=== PATIENT | female | born 1965 | race African-American/Black ===

== ENCOUNTER → 2017-07-14 14:46 | Outpatient (CLI) | payer OTHER, SELFPAY ==
--- NOTE | 2017-07-14 14:54 | RAD_ITS ---
STUDY: X-RAY - LUMBAR SPINE REASON FOR EXAM: Female, 52 years old. Low back pain. No known injury. TECHNIQUE: 4 view(s) of the lumbar spine were obtained. COMPARISON: None FINDINGS: Normal lumbar lordosis. There is no substantial scoliosis. There is a normal alignment of the vertebrae. Normal vertebral bodies and endplates. Normal disc space heights. Is mild diffuse facet sclerosis. The soft tissue structures are unremarkable. RAD/L/S Spine Min 4 Views IMPRESSION: Mild diffuse facet sclerosis. Electronically Signed: Cornel Barrera MD at 17:59 EST , Service support ,
== END ==
PROVIDERS: Family Provider Family Medicine; PCP Family Medicine; Visit Provider Family Medicine
DX: G95.89 Other specified diseases of spinal cord (principal)
CPT/HCPCS: 72110

== ENCOUNTER → 2018-12-31 09:42 | Outpatient (CLI) | payer OTHER, SELFPAY ==
[2018-12-31 09:47] LABS: Bacteria 0 SEEN /hpf (None Seen); Mucous, Urine 0 SEEN /hpf (<or=2+)
[2018-12-31 12:27] LABS: Color, Urine Yellow (Yellow); Glucose, Dipstick Normal (Normal); Ketone-Dipstick Negative (Negative); Leukocyte Esterase-Dipstick Negative /ul (Negative); Nitrite-Dipstick Negative (Negative); Occult Blood-Urine 10 /ul (Negative); Protein-Dipstick Negative (Negative); Urine Bilirubin Dipstick Negative (Negative); Urine Clarity Clear (Clear); Urine Urobilinogen Normal (Normal)
[2018-12-31 12:37] LABS: Red Blood Cells-Urine 0-5 SEEN /hpf (0-5); White Blood Cells 0-5 SEEN /hpf (0-5)
[2018-12-31 12:38] LABS: Squamous Epithelial Cells - UA 5-10 SEEN /hpf (5-10)
[2018-12-31 13:00] LABS: ALB/GLOB Ratio 0.7 RATIO (0.9-2.4); AST(SGOT) 15 U/L (15-37); Alanine Aminotransfer ALT/SGPT 31 U/L (13-56); Albumin, Serum 3.4 g/dL (3.2-5.0); Alkaline Phosphatase 63 U/L (45-117); Anion Gap 6 (5-15); BUN 13 mg/dL (7-18); BUN/Creat Ratio 21.6 RATIO (10-20); Calcium,Total 8.9 mg/dL (8.5-10.1); Chloride 105 mmol/L (98-107); EST Glomerular Filtration Rate 110 mL/min (>60); Est Glom Filt Rate - Afr Amer 133 mL/min (>60); Glucose 79 mg/dL (74-106); Protein, Total 8.4 g/dL (6.4-8.2); Sodium Level 141 mmol/L (136-145); Thyroid Stim Hormone (TSH) 2.94 uIU/mL (0.358-3.74)
[2019-01-05 16:08] LABS: Albumin 3.5 g/dL (2.9-4.4); Alpha-1-Globulins 0.2 g/dL (0.0-0.4); Alpha-2-Globulins 0.7 g/dL (0.4-1.0); Gamma Globulin 1.9 g/dL (0.4-1.8); Immunoglobulin A 610 mg/dL (87-352); Immunoglobulin G 1529 mg/dL (700-1600); Immunoglobulin M 307 mg/dL (26-217); PROEL- TOTAL PROTEIN 7.8 g/dL (6.0-8.5); PROELU- Albumin, Urine 34.2 % (.); PROELU- Alpha-1-Globulin,Ur 3.4 % (.); PROELU- Alpha-2-Globulin,Ur 15.7 % (.); PROELU- Beta Globulin, Ur 27.4 % (.); PROELU- Gamma Globulin, Ur 19.3 % (.)
== END ==
PROVIDERS: Family Provider Family Medicine; PCP Family Medicine; Visit Provider Family Medicine
DX: G62.9 Polyneuropathy, unspecified (principal); R77.1 Abnormality of globulin; R10.9 Unspecified abdominal pain
CPT/HCPCS: 36415; 80053; 81001; 82784; 84165; 84166; 84443; 86334

== ENCOUNTER → 2019-01-06 14:04 | Outpatient (CLI) | payer OTHER, SELFPAY ==
--- NOTE | 2019-01-06 14:07 | BI_ITS ---
MAMMOGRAPHY - BILATERAL DIAGNOSTIC REASON FOR EXAM: Female, 53 years old. Left breast lump for one week. PERTINENT HISTORY: Non-contributory. TECHNIQUE: Digital bilateral breast dalia (3D mammographic acquisition) in the CC and MLO projections. 2-D mediolateral oblique (MLO) and craniocaudad (CC) views of both breasts were obtained. CAD: Full Field Digital Mammography with Computer Added Detection was performed. COMPARISON: Comparison is made with prior examination dated October 29, 2016 and October 01, 2016. FINDINGS: Breast Composition: The breasts are heterogeneously dense, which may obscure small masses. There are no dominant masses or suspicious calcifications. Stable calcified nodule in the upper lateral aspect of the right breast. A tissue clip marker is seen within the 1 cm nodule in the upper lateral aspect of the left breast. No other significant abnormalities are identified. There has been no significant change since the prior study. BI/DIAG MAMM W/CAD, BILAT IMPRESSION: Stable bilateral diagnostic mammogram. With the patient's history of a palpable abnormality in the left breast, correlation with ultrasound is recommended. ASSESSMENT CATEGORY: BIRADS Category 0: Incomplete. Need additional imaging evaluation. A letter regarding these results will be sent to the patient by the facility within 30 days. Approximately 10% of breast cancers are not detected by mammography. A normal mammogram should not delay biopsy of a clinically suspicious abnormality. Electronically Signed: Maulik Stephens, at 9:30 EDT , Service support ,
--- NOTE | 2019-01-06 14:08 | US_ITS ---
STUDY: ULTRASOUND BREAST - LEFT REASON FOR EXAM: Female, 53 years old. Palpable lump left breast. TECHNIQUE: Axial and longitudinal images of the LEFT breast were performed with a high resolution ultrasound transducer. COMPARISON: Comparison is made with prior mammogram dated January 06, 2019. Comparison is also made with prior ultrasound of the left breast dated October 10, 2016. FINDINGS: LEFT Breast: The upper medial aspect of the left breast was examined by ultrasound. There is a 2.9 cm x 2.9 cm x 0.9 cm hypoechoic well-defined nodular density with cystic component in its upper aspect at the 11:00 position of breast at 8 cm from nipple. This may represent a fibroadenoma. A biopsy is recommended. US/Breast Limited Unilateral IMPRESSION: The palpable abnormality corresponds to a 2.9 cm x 2.9 cm x 0.9 cm well-defined hypoechoic solid/cystic nodule in the 11:00 position breast at 8 cm from nipple. Biopsy recommended. ASSESSMENT CATEGORY: BIRADS Category 4: Suspicious - Biopsy Should Be Considered. A letter regarding these results will be sent to the patient by the facility within 30 days. Electronically Signed: Maulik Stephens, at 9:03 EDT , Service support ,
== END ==
PROVIDERS: Family Provider Family Medicine; PCP Family Medicine; Referring Provider Family Medicine; Visit Provider Family Medicine
DX: N63.20 Unspecified lump in the left breast, unspecified quadrant (principal)
CPT/HCPCS: 76642; 77062; 77066; G0279

== ENCOUNTER → 2019-01-08 09:36 | Outpatient (CLI) | payer OTHER, SELFPAY ==
--- NOTE | 2019-01-08 09:38 | US_ITS ---
STUDY: ABDOMINAL ULTRASOUND REASON FOR EXAM: Female, 53 years old. Flank pain TECHNIQUE: Transabdominal ultrasound was performed with real-time and static griffiths scale imaging. TECHNICAL QUALITY: Adequate. COMPARISON: None. FINDINGS: Liver: The liver measures 16.2 cm. There is mildly increased echogenicity of the liver. The bile ducts are within normal limits. There is hepatic color flow. The direction of portal flow is hepatopetal. There is no demonstrated mass lesion. Portal vein measurement: Gallbladder: Normal distended gallbladder. The gallbladder wall measures 2 mm. There is a negative sonographic Ly's sign. There is no pericholecystic fluid. There are no gallstones. Common Bile Duct (C.B.D.): The common bile duct measures 3 mm. Pancreas: Normal size of the head, body and tail of the pancreas. There is normal echogenicity of the pancreas. There is no demonstrated pancreatic mass or cyst. Spleen: Normal size of the spleen. The spleen measures 8.5 x 4.4 cm. Right Kidney: Normal size of the right kidney. The right kidney measures 10.5 x 5.4 x 3.4 cm. Normal renal cortex. The right cortex measures 1.2 cm. There is no demonstrated renal mass or cyst. There is no right hydronephrosis. Left Kidney: Normal size of the left kidney. The left kidney measures 11.4 x 5.4 x 6.2 cm. Normal renal cortex. The left cortex measures 2.3 cm. There is a cyst measuring 1.4 x 1.2 x 1 cm There is no left hydronephrosis. Aorta: No evidence for aortic aneurysm. I.V.C.: The IVC is patent. There is no ascites. US/Abdomen Complete IMPRESSION: Mildly enlarged fatty infiltrated liver Small left renal cyst. Electronically Signed: Nelson Gordon MD at 17:09 EDT , Service support ,
== END ==
PROVIDERS: Family Provider Family Medicine; PCP Family Medicine; Referring Provider Family Medicine; Visit Provider Family Medicine
DX: N28.1 Cyst of kidney, acquired (principal); K76.0 Fatty (change of) liver, not elsewhere classified; R10.9 Unspecified abdominal pain
CPT/HCPCS: 76700

== ENCOUNTER → 2019-01-27 10:14 | Outpatient (CLI) | payer OTHER, SELFPAY ==
[2019-01-20 13:24] VITALS: BMI 5483.4
--- NOTE | 2019-01-27 | LES_PTH ---
PATIENT: JC MAYO LOC: OPUS U#:[id number] AGE/SX: 59/F ROOM: RE01/27/[address]: Dr. Alicja Baltazar MD : 1965 BED: DIS: SPEC #: [id number] RECD: 01/27/19 13:35 STATUS: JERONIMO RAMA #: [id number] NIDIA: 01/27/19 00:[address]: Alicja Baltazar DEPT: SURGICAL PATHOLOGY RECD BY: Juancarlos Ferreira ENTERED: 01/27/19 13:36 SP TYPE: Lesion OTHR DR: Dr. Lore Dominguez, DO Tissues: Skin of breast, NOS Procedures: Surgery Specimen Level IV HEADER OPERATION: Left breast biopsy PRE-OP DIAGNOSIS: Left breast nodule 11 o'clock, fibroadenoma ?, palpable TISSUE SUBMITTED: Left breast lesion 11 o'clock MICROSCOPIC DIAGNOSIS Left breast lesion, 11 o'clock, core biopsy: Fragments of fibroadipose tissue with focal fat necrosis and foreign body giant cell reaction. Negative for atypia or malignancy. Breast tissue is not identified. See comment. MANFRED:aleta 01/28/19 COMMENT Correlation with clinical, radiologic findings and appropriate follow up are necessary. Please make reference to previous specimen ([id number]) left breast mass, ultrasound-guided needle core biopsy with diagnosis of mild duct ectasia and Banal collagenized stroma. MICROSCOPIC DESCRIPTION Slides are reviewed. GROSS DESCRIPTION Received in fixative is one container labeled with the patient's name and designated left breast. The specimen consists of multiple elongated fragments of herrera-yellow fibroadipose tissue that in aggregate measure 1.5 x 1 x 0.1 cm. The entire specimen is submitted in one cassette. / MANFRED:aleta 01/27/19 TC:5 CPT: 48593
--- NOTE | 2019-01-27 10:16 | US_ITS ---
STUDY: ULTRASOUND BREAST - LEFT REASON FOR EXAM: Female, 53 years old. Left breast biopsy with skin lesion TECHNIQUE: Axial and longitudinal images of the LEFT breast were performed with a high resolution ultrasound transducer. COMPARISON: 01/06/2019. FINDINGS: LEFT Breast: Lesion recommended for biopsy based on study of 01/06/2019 was biopsied successfully, by Dr. Baltazar, with marker placed in the lesion. This is along the 11:00 axis, 8 CM from nipple. There is incidental finding of a skin lesion along the lateral breast 15 cm from nipple, measuring 8 x 11 x 2 mm, along 3:00 axis. This may be due to a small sebaceous cyst, among other etiologies. US/US Breast Biopsy 1st Lesion IMPRESSION: Successful biopsy of the lesion along the 8 o'clock axis, 11 cm from nipple. Probable sebaceous cyst, among other etiologies, measuring 8 x 11 x 2 mm, 15 cm from nipple, along the 3 o'clock axis. ASSESSMENT CATEGORY: BIRADS Category 3: Probably Benign - Short-Interval Follow-up Suggested. A letter regarding these results will be sent to the patient by the facility within 30 days. Electronically Signed: Tevin Aguiar MD at 11:21 EDT Tel [phone], Service support ,
--- NOTE | 2019-01-27 10:23 | PCM.HP.BLA ---
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 Is patient in pain?: No Allergies GANDOLIN MRI CONTRAST Allergy (Severe, Uncoded 01/20/19 13:23) Hives Medications naproxen sodium 220 mg capsule 220 mg PO .prn cap 01/20/19 [History Confirmed 01/20/19] PFSH Medical History HTN (hypertension) (Chronic) Surgical History H/O umbilical hernia repair (Acute) S/P section (Acute) S/P partial hysterectomy (Acute) Family History (Updated 01/20/19 @ 13:22 by Vika Vargas) Aunt Colon cancer Father Cancer Grandmother CVA (cerebral vascular accident) Social History (Updated 01/20/19 @ 14:15 by Alicja Baltazar MD) Smoking Status: Never smoker alcohol intake: current alcohol intake frequency: a few times a week HPI HPI HPI: JC MAYO, is a 53 F who presents to the office today for HPI HPI Surgical H&P: Yes HPI: JC MAYO, is a 53 F who presents to the office today for left breast mass. Patient states that she felt that at the end of December had a mammogram and ultrasound at that time. The mammography was a BI-RADS 0.appreciate anything on mammogram. The ultrasound showed a 3 x 3 x 1 cm hypoechoic/cystic nodule at 11:00 8 cm from the nipple. Patient states that this was pretty prominent easy to see. However since last Friday she has been unable to feel it. Denies any nipple discharge or trauma to her breast. Purvi model Age: 53 Age of menses: 9 Age at time of first child: 15 Family history of breast cancer: None Number of past breast biopsies: 2 Number breast biopsy showing atypical hyperplasia: N/A Race/ethnicity: -Nigerian 5 year risk []% (average of []%) Lifetime risk []% (average []%) ROS Breast Breast: No nipple discharge Exam Const General: cooperative, comfortable, no acute distress Chest Breast inspection: normal inspection of the breasts, normal inspection of the axillae Breast Palpation: Yes normal palpation of the breasts, Yes normal palpation of the axillae, Yes no axillary lymphadenopathy (Bilaterally), No nipple discharge, Yes supraclavicular (No supraclavicular adenopathy bilaterally) Resp Effort & Inspection: normal respiratory effort Cardio Rate: regular rate Assessment & Plan Problems 1. Breast mass, left N63.20 Plan Unable to feel a mass in the left breast at this time as well, office ultrasound does not show a clear picture of the previous lesion will have the patient have a repeat ultrasound prior to doing the biopsy make sure that this area is still present. I have discussed above with the patient. I have recommended ultrasound guided needle core breast biopsy. I have described the procedure to the patient. I have discussed with the patient that sometimes the ultrasound lesion may be artifact and is user dependent and therefore prior to undergoing the procedure, the patient will have a definitive US to ensure that the lesion is truly present and is not artifact. A marker clip will be placed to identify the location. Patient has been counseled to the risks/benefits of the procedure. I have explained the risks of the surgery, including but not limited to: infection, bleeding, injury to any blood vessels/nerves, scar tissue, missing the lesion, further surgery, etc. - the patient understands and agrees to proceed. I have answered all of the patient's questions to her satisfaction and she has no further questions. Greater than 50% of direct patient contact was spent in counseling or coordination of care. I spent 25 minutes counseling the patient and coordinating care. Alicja Baltazar M.D. Pager: [phone] [facility] [address], [address] [place] [address] Office: [phone] Plan Detail Follow Up We will schedule ultrasound-guided breast biopsy Coding Level of Care Code Off vis,est,level 4 Diagnoses Breast mass, left N63.20 Time Spent (min) 25 01/20/19 0605 <Electronically signed by Alicja Baltazar MD> Date Alicja Baltazar MD I have examined the patient the following changes are noted: Patient states on her lateral left breast about 4:00 12 7 m from the nipple and a new lesion popped up patient denies any pain or drainage. Area is mild erythema less than a centimeter, dry skin over the area and minimal induration. Patient no further questions about the biopsy. We will also take a look at the site with the ultrasound.
--- NOTE | 2019-01-27 10:43 | PCM.OPRPT ---
Report of Operation Date of Procedure: 01/27/19 Pre-Operative Diagnosis: Left breast mass 11:00 8 cm from the nipple Post-Operative Diagnosis: Same Surgery/Procedure Performed:: Ultrasound-guided left core breast biopsy Type of Anesthesia:: Local Specimen's removed: Left breast mass 11:00 8 cm from the nipple Estimated Blood Loss (mL): Minimal Description of Procedure: Procedure: Left ultrasound-guided core biopsy Indications: 53 year-old female with hypoechoic/cystic nodule at 11:00 in the left breast 8 centimeters from the nipple. Risk benefits were discussed the patient and she elected to proceed with ultrasound guided core biopsy with clip placement Description of procedure: Patient was brought into the ultrasound room in the left breast was marked. A timeout was completed verifying correct patient, procedure, site, specially, prior to beginning procedure. The left breast was prepped and draped in usual sterile fashion and using local anesthesia was obtained with 1% lidocaine with epi. The lesion was located with the ultrasound. Small incision was made with 11 blade to introduced the mammotome through the skin. Under ultrasound guidance multiple core samples were obtained using then 13-gauge mammotome and sent in formalin for pathology. The mammotome mammostar clip was then deployed into the biopsy cavity under ultrasound guidance and a picture was taken. Upon completion procedure hemostasis was obtained and a Steri-Strip and OpSite were placed. Patient was then taken to the mammography suite for clip verification. The clip was verified. The patient tolerated the procedure well and was discharged from the breast imaging department good condition. complications: none - Complications none
== END ==
PROVIDERS: Family Provider Family Medicine; PCP Family Medicine; Referring Provider Surgery; Visit Provider Surgery
DX: N63.22 Unspecified lump in the left breast, upper inner quadrant (principal)
CPT/HCPCS: 19083; 88305

== ENCOUNTER → 2022-07-25 | Outpatient (CLI) | payer OTHER, SELFPAY ==
[2022-07-25 12:12] LABS: Absolute Lymphocyte Count 1.69 X10^3/uL (0.83-4.51); Absolute Neutrophil Count 2.2 X10^3/uL (2.0-7.7); Basophil# 0.02 X10^3/uL; Basophil% 0.5 % (0-1); Eosinophil# 0.12 X10^3/uL; Eosinophils% 2.7 % (0-5); Hematocrit 39.8 % (37-47); Hemoglobin 12.6 g/dL (12.0-15.0); Lymphocyte # 1.69 X10^3/ul (0.83-4.51); Lymphocyte % 38.5 % (19-41); Mean Corp Hgb Conc 31.7 g/dL (32-36); Mean Corpuscular Hgb 27.8 pg (27.0-32.0); Mean Corpuscular Volume 87.9 fL (81-99); Mean Platelet Vol. 10.6 fl (6.2-12.0); Monocyte% 9.1 % (0-10); NRBC Flagged by Analyzer 0 % (0-5); Neutrophil # 2.15 X10^3/uL (2.7-7.7); Platelet Count 291 K/mm3 (150-450); Red Blood Count 4.53 M/mm3 (4.2-5.4); White Blood Count 4.4 K/mm3 (4.4-11.0)
[2022-07-25 12:42] LABS: ALB/GLOB Ratio 0.7 RATIO (0.9-2.4); AST(SGOT) 16 U/L (15-37); Alanine Aminotransfer ALT/SGPT 25 U/L (13-56); Albumin, Serum 3.2 g/dL (3.2-5.0); Alkaline Phosphatase 64 U/L (45-117); Anion Gap 5 (5-15); BUN 9 mg/dL (7-18); BUN/Creat Ratio 15.1 RATIO (10-20); Chloride 104 mmol/L (98-107); Cholesterol 173 mg/dL (200); EST Glomerular Filtration Rate 110 mL/min (>60); Est Glom Filt Rate - Afr Amer 133 mL/min (>60); Globulin 4.8 g/dL (2.2-4.2); Glucose 94 mg/dL (74-106); High Density Lipoprotein 67 mg/dL; Potassium 4.2 mmol/L (3.5-5.1); Sodium Level 140 mmol/L (136-145); Triglycerides 76 mg/dL; Very Low Density Lipoprotein 15 mg/dL (5-40)
== END | disposition home or self-care (01) ==
LOC: BFHLAB 10:27
PROVIDERS: PCP Family Medicine; Visit Provider Family Medicine
DX: Z00.00 Encounter for general adult medical examination without abnormal findings (principal); I10 Essential (primary) hypertension; K76.0 Fatty (change of) liver, not elsewhere classified
CPT/HCPCS: 36415; 80053; 80061; 85025

== ENCOUNTER → 2024-03-18 | Outpatient (CLI) | payer OTHER, SELFPAY ==
[2024-03-18 18:08] LABS: Absolute Lymphocyte Count 2.07 X10^3/uL (0.83-4.51); Absolute Neutrophil Count 4.4 X10^3/uL (2.0-7.7); Basophil# 0.03 X10^3/uL; Basophil% 0.4 % (0-1); Eosinophils% 2.8 % (0-5); Hemoglobin 12.4 g/dL (12.0-15.0); Lymphocyte # 2.07 X10^3/ul (0.83-4.51); Lymphocyte % 28.6 % (19-41); Mean Corp Hgb Conc 31.8 g/dL (32-36); Mean Corpuscular Hgb 27.9 pg (27.0-32.0); Mean Corpuscular Volume 87.6 fL (81-99); Mean Platelet Vol. 11.1 fl (6.2-12.0); Monocyte# 0.54 X10^3/uL; Monocyte% 7.5 % (0-10); NRBC Flagged by Analyzer 0 % (0-5); Neutrophil # 4.37 X10^3/uL (2.7-7.7); Neutrophil % 60.4 % (47-70); Platelet Count 294 K/mm3 (150-450); RBC Distribution Width CV 14.2 % (11.6-14.6); RBC Distribution Width SD 46.3 fl (35.1-43.9); Red Blood Count 4.45 M/mm3 (4.2-5.4); White Blood Count 7.2 K/mm3 (4.4-11.0)
[2024-03-18 18:33] LABS: ALB/GLOB Ratio 0.7 RATIO (0.9-2.4); AST(SGOT) 20 U/L (15-37); Alanine Aminotransfer ALT/SGPT 32 U/L (13-56); Albumin, Serum 3.1 g/dL (3.2-5.0); Alkaline Phosphatase 70 U/L (45-117); Anion Gap 5 (5-15); BUN 12 mg/dL (7-18); BUN/Creat Ratio 14.7 RATIO (10-20); Calcium,Total 9.3 mg/dL (8.5-10.1); Chloride 103 mmol/L (98-107); Cholesterol 167 mg/dL (200); Creatinine, Serum 0.82 mg/dL (0.55-1.02); EST Glomerular Filtration Rate 76 mL/min (>60); Est Glom Filt Rate - Afr Amer 92 mL/min (>60); Globulin 4.7 g/dL (2.2-4.2); Glucose 91 mg/dL (74-106); High Density Lipoprotein 53 mg/dL; Potassium 3.8 mmol/L (3.5-5.1); Protein, Total 7.8 g/dL (6.4-8.2); Sodium Level 138 mmol/L (136-145); Triglycerides 172 mg/dL; Very Low Density Lipoprotein 34 mg/dL (5-40)
== END | disposition home or self-care (01) ==
PROVIDERS: PCP Family Medicine; Referring Provider Family Medicine; Visit Provider Family Medicine
DX: Z00.00 Encounter for general adult medical examination without abnormal findings (principal)
CPT/HCPCS: 36415; 80053; 80061; 85025